=== PATIENT | male | born 1975 | race Caucasian/White ===

== ENCOUNTER 2021-02-07 11:47 | Emergency (ER) | payer OTHER, SELFPAY ==
--- NOTE | 2021-02-07 13:19 | PC.NURSE ---
pt was waiting for covid test, when staff called pt he was gone
[2021-02-07 13:20] VITALS: BP 0/0; PULSE 0; RESP 0; TEMP -17.7; TEMP 0
== END 2021-02-07 13:21 | disposition left against medical advice (07) ==
LOC: UTC 11:52
PROVIDERS: Emergency Provider Nurse Practitioner Family; PCP Family Medicine
DX: Z53.21 Procedure and treatment not carried out due to patient leaving prior to being seen by health care provider (principal)

== ENCOUNTER 2021-02-07 13:50 | Emergency (ER) | payer OTHER, SELFPAY ==
[2021-02-07 15:07] VITALS: BP 137/78; PULSE 80; RESP 18; TEMP 36.7; O2SAT 96; BMI 34.2
--- NOTE | 2021-02-07 15:15 | HMH.EDUTC ---
[facility] [place] Clinical Impression: Exposure to COVID-19 virus Disposition: Home, Self-Care Condition on Discharge: Good Instructions: DI for COVID-19 (Suspected or Confirmed ), Preventing the Spread of Coronavirus Discharge Instructions Additional Instructions: Drink plenty of fluids. Take tylenol for pain or fever. Return if you begin to have difficulty breathing. Follow up with your regular doctor. GO TO THE ER FOR ANY WORSENING SYMPTOMS Quarantine until you know the results of your covid-19 test. If it is positive, the health department should call you and give you further instructions about your length of Quarantine and other things. Notify your school or workplace of your results and follow their instructions regarding return to work/school. Referrals: Agnes Jernigan [Primary Care Provider] - Time of Disposition: 15:17 Medical Decision Making - Medical Records Medical records reviewed: No: I reviewed the patient's medical records. - Alex Inquiry Pt receiving controlled substance: No Vital Signs: 02/07/21 15:07 02/07/21 15:28 Temperature 98.0 F 98.0 F Temperature Source Oral Pulse Rate 80 Pulse Rate [Left Radial] 80 Respiratory Rate 18 18 Blood Pressure 137/78 Blood Pressure [Left Arm] 137/78 Blood Pressure Mean [Left Arm] 97 Blood Pressure Source [Left Arm] Automatic Cuff Blood Pressure Position [Left Arm] Sitting 02 Sat by Pulse Oximetry 96 Oxygen Delivery Method Room Air Orders (Tests/Meds): ORDERS Category Date Time Status Covid-19 Nasal PCR ([facility]) Routine Lab 02/07/21 14:58 Received [facility] [place] - General Stated complaint: covid test / exposure Time Seen by Provider: 02/07/21 15:15 Mode of Arrival: Ambulatory Source of Information: Patient Limitations: No Limitations Description of Symptoms (Recalled from Triage Doc. by RN): pt requesting covid test r/t exposure 1.5 weeks ago, pt states no symptoms HEENT Symptoms (Recalled from RN notes): No Resp Symptoms (Recalled from RN notes): No Skin Symptoms (Recalled from RN notes): No MS Symptoms (Recalled from RN notes): No Functional Status (Recalled from RN notes): n/a - History of Present Illness Provider Complaint: He was exposed to covid-19 in his house. He denies any symptoms so far. He needs a covid-19 test for his job. - Related Data Allergies Allergy/AdvReac Type Severity Reaction Status Date / Time amoxicillin [From Amoxil] Allergy Verified 02/07/21 13:09 - Worker's Comp Is this a Worker's Comp case?: No [facility] History - Hepatitis A Screen Drug use history?: No High risk sexual behaviors?: No History of sexually transmitted infection?: No Currently employed?: No Childcare worker?: No Do you have indoor plumbing?: Yes Do you have electricity?: Yes Attestation statement:: This patient has been screened for Hepatitis A risk factors. I have reviewed the patient's past medical history: Yes ROS Obtained: Yes All systems reviewed & no additional complaints - Constitutional Constitutional: Reports system reviewed and no additional complaints, except as docu - Eyes Eyes: Reports system reviewed and no additional complaints, except as docu - ENT Ears, Nose, Mouth, and Throat: Reports system reviewed and no additional complaints, except as docu - Cardiovascular Cardiovascular: Reports system reviewed and no additional complaints, except as docu - Respiratory Respiratory: Reports system reviewed and no additional complaints, except as docu - Gastrointestinal Gastrointestingal: Reports: system reviewed and no additional complaints, except as docu Physical Exam - General General appearance: alert, in no apparent distress - Head Head exam: atraumatic, normocephalic, normal inspection - Eye Eye exam: Present: normal appearance, PERRL, EOMI - ENT ENT exam: Present: normal exam, normal oropharynx, mucous membranes moist, TM's normal bilaterally, normal external ear ex
[2021-02-07 15:28] VITALS: BP 137/78; PULSE 80; RESP 18; TEMP 36.7; O2SAT 96
== END 2021-02-07 15:29 | disposition home or self-care (01) ==
PROVIDERS: Emergency Provider Nurse Practitioner Family; PCP Family Medicine
DX: U07.1 COVID-19 (principal)
CPT/HCPCS: 99202; G0463; U0003

== ENCOUNTER 2023-06-11 14:52 | Emergency (ER) | payer BC, SELFPAY ==
[2023-06-11 14:50] VITALS: BP 134/89; PULSE 75; RESP 18; TEMP 37.1; O2SAT 100; BMI 34.0
--- NOTE | 2023-06-11 14:52 | ECG_ITS ---
APPROVED REPORT Exam: Resting ECG HR:76 bpm ECG Measurements Heart Rate 76 AXES VT 141 P 65 QRSd 93 QRS 48 QT 336 T 33 QTc 366 Conclusion SINUS RHYTHM NORMAL ECG UNCONFIRMED REPORT Electronically signed by : Samy Connell MD 06/12/2023 10:06:29
--- NOTE | 2023-06-11 15:05 | XR_ITS ---
FINAL REPORT CLINICAL HISTORY: CHEST PAIN FINDINGS: SINGLE-VIEW CHEST The heart size is normal. The mediastinum is normal. The lungs are clear. There is no pneumothorax. IMPRESSION: No acute cardiopulmonary process. Reviewed, Interpreted and Dictated by Jose Blakely III, MD Transcribed by Pam Reynoso Authenticated and . [facility]
--- NOTE | 2023-06-11 15:12 | PC.NURSE ---
XR AT BEDSIDE
--- NOTE | 2023-06-11 15:14 | HMH.EDGENADL ---
Discharge Plan Disposition Patient Disposition: Left Against Medical Advice Clinical Impressions Clinical Impression: Left against medical advice Discharge ED Provider: Rashaun Elena Adult [facility] General Chief complaint: Chest Pain Stated complaint: chest pain Time Seen by Provider: 06/11/23 15:14 Mode of Arrival: Ambulatory Source of Information: Patient Limitations: No Limitations Description of Symptoms (Recalled from ER Triage Doc. by RN): PT REPORTS CHEST PAIN/SHORTNESS OF BREATH WHILE AMBULATING IN [employer]. HAS SEEN PCP ON WEDNESDAY FOR FLU-LIKE SYMPTOMS. REPORTS NON-PRODUCTIVE COUGH X 3 DAYS. REPORTS WORSE WITH EXERTION, BETTER AT REST. History of Present Illness HPI narrative: Patient describes brief episode of substernal chest pain that was acute in onset while ambulating in [employer], has resolved at this time. Has not had similar symptoms before. It was radiating to his left arm. Pain is described as dull. No previous therapies. Of note was seen by PCP for flulike symptoms earlier this week, prescribed azithromycin. He has been compliant with this medication. He had not had chest pain at that time. Denies any chronic medical issues. Denies any significant coronary family history. Pain is resolved at this time. Pain is nonpleuritic. No associated palpitations. No fevers or chills. Related Data Allergies Allergy/AdvReac Type Severity Reaction Status Date / Time amoxicillin [From Amoxil] Allergy Verified 02/07/21 13:09 [facility] Disclaimer: The information contained in this section may have been updated after the patient was seen, as this information can be updated by other users. Social History Smoking Status: Never smoker alcohol intake: current current occupational status: other Travel in the last 8 weeks: None ROS Obtained: Yes Systems reviewed as appropriate & no additional complaints except as documented As per HPI Physical Exam General General appearance: alert and in no apparent distress Head Head exam: atraumatic and normocephalic Eye Eye exam: Present normal appearance Neck Neck exam: Present normal inspection Chest Chest inspection: Present normal inspection and symmetric chest wall rise Respiratory Respiratory exam: Present normal lung sounds bilaterally; Absent respiratory distress Cardiovascular Cardiovascular exam: Present regular rate and normal rhythm; Absent systolic murmur or diastolic murmur Abdominal Exam Abdominal exam: Present soft Neurological Exam Neurological exam: Present alert and oriented X3 Psychiatric Psychiatric exam: Present normal affect and normal mood Skin Skin exam: Present warm and dry Medical Decision Making Medical Records Medical records reviewed: Yes I reviewed the patient's medical records. Alex Inquiry Pt receiving controlled substance: No Vital Signs: 06/11/23 14:50 06/11/23 16:00 06/11/23 16:30 Temperature 98.8 F Temperature Source Oral Pulse Rate 77 70 Pulse Rate [Apical] 75 Respiratory Rate 18 18 18 Blood Pressure 131/89 126/93 H Blood Pressure [Right Arm] 134/89 Blood Pressure Mean 105 98 Blood Pressure Mean [Right Arm] 104 Blood Pressure Source Blood Pressure Source [Right Arm] Automatic Cuff Blood Pressure Position Blood Pressure Position [Right Arm] Sitting 02 Sat by Pulse Oximetry 100 97 96 Oxygen Delivery Method Room Air 06/11/23 17:00 06/11/23 18:39 Temperature 98.2 F Temperature Source Oral Pulse Rate 70 70 Pulse Rate [Apical] Respiratory Rate 18 18 Blood Pressure 119/83 119/83 Blood Pressure [Right Arm] Blood Pressure Mean 95 Blood Pressure Mean [Right Arm] Blood Pressure Source Automatic Cuff Blood Pressure Source [Right Arm] Blood Pressure Position Supine Blood Pressure Position [Right Arm] 02 Sat by Pulse Oximetry 94 L Oxygen Delivery Method Room Air Lab Data Lab Results 06/11/23 14:50: WBC 4.0 L, RBC 4.97, Hgb 15.2, Hct 44.6, MCV 89.6, MCH 30.7, MCHC 34.2, RDW 13.4, Plt Count 205, MPV 8.2, Neut % (Auto) 63.9, Lymph % (Auto) 26.1, [place] % (Auto) 8.2, Eos % (Auto) 0.4, Baso % (Auto) 1.3, Neut # (Auto) 2.5, Lymph # (Auto) 1.0, [place] # (Auto) 0.3, Eos # (Auto) 0.0, Baso # (Auto) 0.1, Sodium 137, Potassium 4.3, Chloride 104, Carbon Dioxide 27, Anion Gap 10.3, BUN 19, Creatinine 1.20, Estimated Creat Clear 120, Estimated GFR 65, Est GFR ( Amer) 79, Glucose 106 H, Calcium 9.2, Total Bilirubin 0.7, AST 37, ALT 51, Alkaline Phosphatase 39, Troponin I 0.02, Total Protein 7.2, Albumin 4.1, Globulin 3.1, Albumin/Globulin Ratio 1.3 06/11/23 18:05: Troponin I 0.02 06/11/23 14:50 06/11/23 14:50 Orders (Tests/Meds): ED MEDICATIONS Discontinued Medications Generic Name Dose Route Start Last Admin Trade Name Freq PRN Reason Stop Dose Admin Acetaminophen 1,000 mg 06/11/23 15:44 06/11/23 15:59 Acetaminophen 500mg Tab PO 06/11/23 15:45 1,000 mg ONCE ONE Administration Lactated Ringer's 1,000 mls @ 999 mls/hr 06/11/23 15:44 06/11/23 16:00 Lactated Ringer's 1000 Ml Bag IV 06/11/23 16:44 999 mls/hr .Q1H1M ONE Administration Ibuprofen 600 mg 06/11/23 15:44 06/11/23 16:00 Ibuprofen 600 Mg Tablet PO 06/11/23 15:45 600 mg ONCE ONE Administration Sodium Chloride 10 ml 06/11/23 15:05 Sodium Chloride 0.9% 10ml Flush Syringe IV 07/11/23 15:04 NEEDED PRN Maintain IV Site ORDERS Category Date Time Status XR chest portable Stat Exams 06/11/23 15:05 Completed Complete Blood Count Auto Diff Stat Lab 06/11/23 14:50 Completed Comprehensive Metabolic Panel Stat Lab 06/11/23 14:50 Completed Troponin I Q3H Lab 06/11/23 18:05 Completed Troponin I Stat Lab 06/11/23 14:50 Completed ECG initial Besson Routine Y 06/11/23 14:52 Completed HEART Score History (anamnesis): Moderately suspicious ECG: Non-specific disturbance Age: 45-65 years Risk factors: 1-2 risk factors Troponin: </= normal limit HEART Score: 4 Medical Decision Narrative: Patient with history and exam per above presenting for evaluation of chest pain Diagnoses considered include ACS, pericarditis, PE, pneumothorax, pneumonia, GERD, costochondritis, referred pain ED workup and treatment included: ED MEDICATIONS Discontinued Medications Generic Name Dose Route Start Last Admin Trade Name Freq PRN Reason Stop Dose Admin Acetaminophen 1,000 mg 06/11/23 15:44 06/11/23 15:59 Acetaminophen 500mg Tab PO 06/11/23 15:45 1,000 mg ONCE ONE Administration Lactated Ringer's 1,000 mls @ 999 mls/hr 06/11/23 15:44 06/11/23 16:00 Lactated Ringer's 1000 Ml Bag IV 06/11/23 16:44 999 mls/hr .Q1H1M ONE Administration Ibuprofen 600 mg 06/11/23 15:44 06/11/23 16:00 Ibuprofen 600 Mg Tablet PO 06/11/23 15:45 600 mg ONCE ONE Administration Sodium Chloride 10 ml 06/11/23 15:05 Sodium Chloride 0.9% 10ml Flush Syringe IV 07/11/23 15:04 NEEDED PRN Maintain IV Site ORDERS Category Date Time Status XR chest portable Stat Exams 06/11/23 15:05 Completed Complete Blood Count Auto Diff Stat Lab 06/11/23 14:50 Completed Comprehensive Metabolic Panel Stat Lab 06/11/23 14:50 Completed Troponin I Q3H Lab 06/11/23 18:05 Completed Troponin I Stat Lab 06/11/23 14:50 Completed ECG initial Bess[place] Routine Y 06/11/23 14:52 Completed Labs were independently interpreted by me, significant for leukopenia, creatinine 1.20, initial troponin detectable at 0.02 EKG was independently visualized and interpreted by me significant for normal sinus rhythm, normal axis, anterior T wave depressions Imaging was independently visualized and interpreted by me, significant for no acute findings Patient and family member at bedside are requesting to be discharged at this time AGAINST MEDICAL ADVICE. They are frustrated with their length of stay which was explained is due to pending second troponin, as initial troponin was detectable, patient has nonspecific EKG changes, and had recent onset of chest pain necessitating a delta troponin. They explained to me that they are not concerned about any coronary cause of his chest pain and simply wanted to be checked out for any infectious process. My clinical impression was discussed including risks of being discharged AGAINST MEDICAL ADVICE including disability and . They expressed an understanding of these risks and still request to be discharged. They are encouraged to follow-up with cardiology and return should they change their mind or should his symptoms worsen. Patient was instructed to continue azithromycin prescribed by physician earlier this week. Again, return precautions were given. Critical Care Critical Care Time Critical Care Time: No
[2023-06-11 15:22] LABS: Basophils # 0.1 K/mm3 (0-0.2); Basophils % 1.3 % (0.1-2.0); Eosinophils % 0.4 % (0.1-12.0); Hematocrit 44.6 % (42.0-52.0); Hemoglobin 15.2 g/dL (14.1-18.0); Lymphocytes % 26.1 % (10-50); Mean Corpuscular HGB Conc 34.2 g/dL (31.8-35.4); Mean Corpuscular Hemoglobin 30.7 pg (27.0-31.2); Mean Corpuscular Volume 89.6 fl (80-94); Mean Platelet Volume 8.2 fl (7.4-10.4); Monocytes # 0.3 K/mm3 (0.1-1.0); Monocytes % 8.2 % (1.7-9.3); Neutrophils # 2.5 K/mm3 (1.8-7.8); Neutrophils % 63.9 % (37.0-80.0); Platelet Count 205 K/mm3 (142-424); Red Blood Count 4.97 M/mm3 (4.60-6.20); Red Cell Distribution Width 13.4 % (11.5-17.5)
[2023-06-11 15:24] LABS: Chloride 104 mmol/L (98-107)
[2023-06-11 15:25] LABS: Potassium 4.3 mmoL/L (3.5-5.1); Sodium 137 mmol/L (136-145)
[2023-06-11 15:27] LABS: Alanine Aminotransferase 51 U/L (12-78); Aspartate Amino Transferase 37 U/L (17-59); Blood Urea Nitrogen 19 mg/dl (9-20); Creatinine Clearance Estimated 120 mL/min (50-200); Estimated Glomerular Filt Rate 65 ml/min (>60); GFR (African American) 79 ML/MIN (>60)
[2023-06-11 15:28] LABS: Albumin Level 4.1 g/dl (3.5-5.0); Albumin/Globulin Ratio 1.3 (1.1-1.8); Alkaline Phosphatase 39 U/L (38-126); Anion Gap 10.3 mEq/L (5-15); Bilirubin,Total 0.7 mg/dl (0.2-1.3); Calcium 9.2 mg/dl (8.4-10.2); Carbon Dioxide 27 mmol/L (22.0-30.0); Globulin 3.1 g/dL (1.3-3.2); Glucose 106 mg/dl (74-100); Total Protein,Serum 7.2 g/dl (6.3-8.2)
--- NOTE | 2023-06-11 15:28 | PC.NURSE ---
Addendum entered by Traci Steven RN 06/11/23 18:14: 1528 DR MONTERO AT BEDSIDE Original Note: DR MONTERO
[2023-06-11 15:40] LABS: Troponin I 0.02 ng/ml (0.00-0.034)
[2023-06-11] MEDS: ACETAMINOPHEN 500MG TAB 1000 MG PO (15:59)
[2023-06-11 16:00] VITALS: BP 131/89; PULSE 77; RESP 18; O2SAT 97
[2023-06-11] MEDS: LACTATED RINGERS 1000ML 1,000 ML 999 ML IV (16:00)
[2023-06-11] MEDS: IBUPROFEN 600 MG TABLET PO (16:00)
--- NOTE | 2023-06-11 16:00 | PC.NURSE ---
PT MEDICATED PER EMAR, NO NEEDS AT THIS TIME. CALL LIGHT WITHIN REACH. AT BEDSIDE
[2023-06-11 16:30] VITALS: BP 126/93; PULSE 70; RESP 18; O2SAT 96
[2023-06-11 17:00] VITALS: BP 119/83; PULSE 70; RESP 18; O2SAT 94
--- NOTE | 2023-06-11 17:00 | PC.NURSE ---
PT PROVIDED WARM BLANKET
--- NOTE | 2023-06-11 18:08 | PC.NURSE ---
THIS NURSE AT BEDSIDE TO DRAW REPEAT TROP. STATES CAN WE JUST GO? WE HAVE BEEN HERE FOR 3 HOURS! EXPLAINED TO THAT BLOOD WORK FOR HEART ENZYMES ARE REPEATED AT 3 HOURS AFTER FIRST BLOOD COLLECTED. DEMANDS PT'S IV BE REMOVED AND [facility] CALL PT WITH RESULTS. OFFERED TO REMOVE IV FOR PT. INFORMED DR MONTERO OF 'S CONCERNS. DR. MONTERO STATES HE IS FINISHING OTHER EMERGENT MATTERS AND WILL SEE PT SONIDO. PT AND UPDATED.
[2023-06-11 18:33] LABS: Troponin I 0.02 ng/ml (0.00-0.034)
--- NOTE | 2023-06-11 18:33 | PC.NURSE ---
PT REQUESTING TO LEAVE THE HOSPITAL AMA , DR MONTERO WENT IN AND SPOKE WITH PT EXPLAINING WHY HE NEEDS TO STAY PT UNDERSTANDS AND AGREES TO RETURN TO ER IF PAIN RETURNS OR ANY OTHER PROBLEMS. IV REMOVED PT AMBULATED OUT WITH AMA PAPER SIGNED
[2023-06-11 18:39] VITALS: BP 119/83; PULSE 70; RESP 18; TEMP 36.8; O2SAT 94
== END 2023-06-11 18:56 | disposition left against medical advice (07) ==
PROVIDERS: Emergency Provider Emergency Medicine; PCP Family Medicine
DX: R07.9 Chest pain, unspecified (principal); R06.02 Shortness of breath; M79.602 Pain in left arm; R05.9 Cough, unspecified
CPT/HCPCS: 71045; 80053; 84484; 85025; 93005; 96360; 99285

== ENCOUNTER 2024-01-22 10:29 | Outpatient (CLI) | payer BC, SELFPAY ==
--- NOTE | 2024-01-22 | XR_ITS ---
PROCEDURE INFORMATION: Exam: XR Left Shoulder Exam date and time: 01/22/2024 10:58 AM Age: 48 years old Clinical indication: Pain; Shoulder; Left; Additional info: Pain, no known trauma TECHNIQUE: Imaging protocol: Radiologic exam of the left shoulder. Views: 2 or more views. COMPARISON: CR XR CHEST PORTABLE 06/11/2023 3:12 PM FINDINGS: Bones/joints: There is no evidence of acute fracture.There is no evidence of malalignment or dislocation. Soft tissues: Normal. IMPRESSION: There is no evidence of acute fracture.There is no evidence of malalignment or dislocation.
== END 2024-01-22 23:59 | disposition home or self-care (01) ==
LOC: RAD 10:31
PROVIDERS: PCP Family Medicine; Visit Provider Family Medicine
DX: M25.512 Pain in left shoulder (principal)
CPT/HCPCS: 73030

== ENCOUNTER 2024-11-26 13:50 | Emergency (ER) | payer BC, SELFPAY ==
[2024-11-26] VITALS (10 sets, daily range): BP systolic 150–185; BP diastolic 100–117; PULSE 68–87; RESP 14–18; TEMP 36.8–37.1; O2SAT 92–100; BMI 34.2
--- OUTSIDE RECORDS SUMMARY | 2024-11-26 14:03 | XMS_ITS | Clinical Summary ---
Author Organization [facility] Address [address] [place] [phone] Phone Care Team Providers Care Branch Operations Manager Name Role Phone Unavailable Primary Care Provider Unavailabl e Allergies Active Allergy Reactions Criticality Noted Date Comments Bee Pollen Anaphylaxis High 06/24/2014 Medications No known medications Social History Tobacco Use Types Packs/Day Years Used Date Smoking Tobacco: Never Smokeless Tobacco: Never Alcohol Use Standard Drinks/Week Comments No 0 (1 standard drink = 0.6 oz pur e alcohol) Sexually Active Control Partners Comments Not Currently Sex and Gender Information Value Date Recorded Sex Assigned at Not on file Legal Sex Male 3:15 AM EDT Gender Identity Not on file Sexual Orientation Not on file Obstetrics History Last Filed Vital Signs Vital Sign Reading Time Taken Comments Blood Pressure 130/90 06/24/2014 10:49 AM EST Pulse 90 06/24/2014 10:49 AM EST Temperature 36.6 C (97.9 F) 06/24/2014 10:49 AM EST Respiratory Rate 16 06/24/2014 10:49 AM EST Oxygen Saturation 99% 06/24/2014 10:49 AM EST Inhaled Oxygen Concentration - - Weight 98.9 kg (218 lb) 06/24/2014 10:49 AM EST Height 180.3 cm (5' 11 ) 06/24/2014 10:49 AM EST Body Mass Index 30.4 06/24/2014 10:49 AM EST Plan of Treatment Health Maintenance Due Date Last Done Comments Annual Wellness Exam 09/17/1979 DTaP/TDaP/Td (1 - Tdap) 09/17/1995 Hepatitis B Vaccine (1 of 3 - 19+ 3-dose series) 09/17/1995 Cologuard 2021 Colon Cancer Screening 2021 Colonoscopy 2021 FIT 2021 Sigmoidoscopy 2021 Virtual Colonography 2021 COVID-19 Vaccine (1 - 2023-2 5 season) 2024 Influenza Vaccine (Season Ended) 2025 Meningococcal B Vaccine Aged Out No l onger eligible based on patient's age to complete this topic Pneumococcal Vaccine 0-49 Aged Out No longer eligible based on patient's age to complete this topic Insurance 1996 [place] [id number] [employer] PPO [employer] PPO
--- NOTE | 2024-11-26 14:07 | PC.NURSE ---
pt filling out the animal bite form. Gauze applied to patient's ear and coban wrapped. Bleeding controlled. Pt states dog was UTD on its rabies vaccination. Pt will need t-dap updated.
[2024-11-26] MEDS: AMOXICILLIN/CLAVULANATE POTASSIUM 875/125MG TABLET 1 EACH PO (15:30)
[2024-11-26] MEDS: TET/DIPHTH/PERT-ADULT 0.5ML SYRINGE 0.5 ML IM (15:30)
--- NOTE | 2024-11-26 15:34 | ED_ITS ---
Discharge Plan Disposition Patient Disposition: Home, Self-Care Condition: Good Prescriptions Prescriptions: New amoxicillin-pot clavulanate 875-125 mg tablet 1 tab PO BID Qty: 20 0RF levofloxacin 750 mg tablet 750 mg PO DAILY 7 Days Qty: 7 0RF Referrals Follow up/Referrals: Agnes Jernigan [Primary Care Provider, Medical] - See instructions Yadira Terrazas APRN [Nurse Practitioner, Ear, Nose, Throat] - See instructions Activity Restrictions/Add. Instructions Additional Instructions/Restrictions: You were evaluated in the emergency department today. You have a complex laceration to your ear that was repaired with both absorbable and nonabsorbable sutures. The nonabsorbable sutures will need to be removed in 7 to 10 days. There are 19 of them. 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 I recommend leaving the pressure dressing that on your head on for 24 hours to help prevent an auricular hematoma. Make sure the wound stays clean and dry. You may apply antibiotic, twice daily to help prevent infection and promote healing. Do not submerge your ear underwater, such as in swimming pool or in the bathtub until completely healed and sutures have been removed. I recommend follow-up with ENT for wound recheck. Please call their office to schedule an appointment. Return to the emergency department right away for new or worsening symptoms. Take Tylenol and ibuprofen every 4-6 hours as needed for pain. Clinical Impressions Clinical Impression: Dog bite of right ear, Complex laceration of right ear Stand Alone Forms Stand Alone Forms: Work/School Release Instructions Patient Instructions: Animal Bites, DI for Dog Bite Print Language Print Language: Occitan Discharge ED Provider: Janesas Narvaez General Adult HPI General Chief complaint: Animal Bite Stated complaint: AO 11/26/24 140. Dog bite R ear Time Seen by Provider: 11/26/24 15:02 Mode of Arrival: Ambulatory Source of Information: Patient Description of Symptoms (Recalled from ER Triage Doc. 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 pt bent over next to the animals food bowl and the dog bit him. pt reports the dog is UTD on vaccines and has no bite hx. pt is due and will to take a TDAP. the pts cartlige is severely ripped. History of Present Illness HPI narrative: This patient is a 49-year-old male who denies any past medical history presenting to the emergency department for evaluation with concern for dog bite to the right ear that happened just prior to arrival. 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 He notes the dog is up-to-date on vaccinations. He is unsure when his last tetanus shot was. No other concerns or complaints noted. No other injuries. Of note, his medical record lists amoxicillin as an allergy, but he states that he is not allergic to amoxicillin and is not allergic to anything that he knows of. Related Data Previous Rx's ?Medication ?Instructions ?Recorded amoxicillin 875 mg-potassium 1 tab PO BID #20 tabs clavulanate 125 mg tablet levofloxacin 750 mg tablet 750 mg PO DAILY 7 days #7 t abs 11/26/24 Allergies Allergy/AdvReac Type Severity Reaction Status Date / Time amoxicillin (From Amoxil) Allergy Verified 02/07/21 13:09 [facility] Disclaimer: The information contained in this section may have been updated after the patient was seen, as this information can be updated by other users. Social History Smoking Status: Never smoker alcohol intake: current current occupational status: other Travel in the last 8 weeks?: None Have you lived/traveled outside [place] in past 30 days?: No Contact w/someone who lives/traveled outside [place] past 30 days?: No Exposure to someone with infectious disease in past 14 days?: No Do you have a fever (greater than 100.4 F or 38 C)?: No Have you tested positive for COVID-19?: No Exposed to someone with COVID-19 in past 14 days?: No Do you have a sore throat?: No Do you have a cough?: No Do you have any weakness?: No Do you have any diarrhea?: No Are you experiencing any unusual bleeding?: No Do you have any muscle aches/pain?: No Do you have any abdominal pain?: No Are you experiencing loss of taste or smell?: No ROS Obtained: Yes All systems reviewed & no additional complaints except as documented Physical Exam General General appearance: alert and in no apparent distress Head Head exam: atraumatic and normocephalic Eye Eye exam: Present normal appearance, PERRL and EOMI ENT ENT exam: Present normal oropharynx and mucous membranes moist Expanded ENT Exam Ear images: 2 1. Full-thickness laceration with exposed cartilage Neck Neck exam: Present normal inspection, full ROM and trachea midline; Absent tenderness Chest Chest inspection: Present normal inspection and symmetric chest wall rise; Absent tenderness Respiratory Respiratory exam: Present normal lung sounds bilaterally; Absent respiratory distress, wheezes, stridor or accessory muscle use Cardiovascular Cardiovascular exam: Present regular rate and normal rhythm Abdominal Exam Abdominal exam: Present soft; Absent distention, tenderness or guarding exam: Absent deferred Extremities Exam Extremities exam: Present normal inspection, full ROM and normal capillary refill; Absent tenderness or edema Back Exam Back exam: Present normal inspection and full ROM; Absent tenderness Neurological Exam Neurological exam: Present alert, oriented X3, CN II-XII intact and normal gait; Absent motor sensory deficit Psychiatric Psychiatric exam: Present normal affect and normal mood Skin Skin exam: Present warm and dry Medical Decision Making Medical Records Medical records reviewed: Yes I reviewed the patient's medical records. Screening: Per USPSTF and CDC recommendations, given the prevalence of disease in our region, it is our hospital?s policy to screen for HIV and viral Hepatitis for all patients aged 18 and over and those with ongoing risk factors. Alex Inquiry Pt receiving controlled substance: No Vital Signs: 11/26/24 14:03 11/26/24 15:00 11/26/24 15:30 Temperature 98.7 F Temperature Source Oral Pulse Rate 75 75 Pulse Rate [Left] 87 Respiratory Rate 14 Blood Pressure Blood Pressure [Right Arm] 150/100 H Blood Pressure Mean Blood Pressure Mean [Right Arm] 116 Blood Pressure Source Blood Pressure Source [Right Arm] Automatic Cuff Blood Pressure Position Blood Pressure Position [Right Arm] Sitting 02 Sat by Pulse Oximetry 96 96 97 Oxygen Delivery Method Room Air 11/26/24 16:00 11/26/24 16:34 11/26/24 17:00 Temperature Temperature Source Pulse Rate 84 83 75 Pulse Rate [Left] Respiratory Rate Blood Pressure 170/108 H 165/109 H Blood Pressure [Right Arm] Blood Pressure Mean Blood Pressure Mean [Right Arm] Blood Pressure Source Blood Pressure Source [Right Arm] Blood Pressure Position Blood Pressure Position [Right Arm] 02 Sat by Pulse Oximetry 98 100 97 Oxygen Delivery Method 11/26/24 17:30 11/26/24 18:00 11/26/24 18:30 Temperature Temperature Source Pulse Rate 73 79 68 Pulse Rate [Left] Respiratory Rate 18 Blood Pressure 166/114 H 154/110 H 158/117 H Blood Pressure [Right Arm] Blood Pressure Mean 131 Blood Pressure Mean [Right Arm] Blood Pressure Source Blood Pressure Source [Right Arm] Blood Pressure Position Blood Pressure Position [Right Arm] 02 Sat by Pulse Oximetry 97 92 L 97 Oxygen Delivery Method 11/26/24 19:12 Temperature 98.3 F Temperature Source Oral Pulse Rate 68 Pulse Rate [Left] Respiratory Rate 18 Blood Pressure 185/115 H Blood Pressure [Right Arm] Blood Pressure Mean Blood Pressure Mean [Right Arm] Blood Pressure Source Automatic Cuff Blood Pressure Source [Right Arm] Blood Pressure Position Sitting Blood Pressure Position [Right Arm] 02 Sat by Pulse Oximetry Oxygen Delivery Method Room Air Lab Data Lab results reviewed: Yes I reviewed the patient's lab results. Orders (Tests/Meds): ED MEDICATIONS Discontinued Medications Generic Name Dose Route Start Last Admin Trade Name Freq PRN Reason Stop Dose Admin Amoxicillin/Clavulanate Potassium 1 each 11/26/24 15:06 11/26/24 15:30 Amoxicillin/Clavulanate Potassium 875/125mg Tablet PO 11/26/24 15:07 1 each ONCE ONE Administration Levofloxacin 750 mg 11/26/24 16:24 11/26/24 16:36 Levofloxacin 750 Mg Tablet PO 11/26/24 16:25 750 mg ONCE ONE Administration Lidocaine HCl 20 ml 11/26/24 15:27 11/26/24 15:43 Lidocaine 1% 20ml Mdv IJ 11/26/24 15:28 20 ml ONCE ONE Administration Lidocaine HCl 20 ml 11/26/24 17:55 11/26/24 17:57 Lidocaine 1% 20ml Mdv IJ 11/26/24 17:56 20 ml ONCE ONE Administration Ondansetron HCl 4 mg 11/26/24 16:59 11/26/24 17:02 Ondansetron 4mg Odt SL 11/26/24 17:00 4 mg ONCE ONE Administration Oxycodone HCl 5 mg 11/26/24 16:59 11/26/24 17:01 Oxycodone 5mg Immediate Release Tablet PO 12/26/24 16:58 5 mg Q6HP PRN Administration Severe Pain (7-10) Tetanus/Reduced Diphtheria/Acell Pertussis 0.5 ml 11/26/24 15:06 11/26/24 15:30 Tet/Diphth/Pert-Adult 0.5ml Syringe IM 11/26/24 15:07 0.5 ml .ONCE ONE Administration Medical Decision Narrative: In summary, this patient is a 49-year-old male presenting to the Emergency Department for evaluation of dog bite to the right ear. Differential diagnoses considered include but are not limited to ear avulsion, laceration, cartilage injury. Ruling out the most morbid conditions drove assessment. It should be noted patient's history includes hypertension which may not be at goal therapy. This complicates all aspects of care by increasing patient's risk for morbidity. On exam, the patient is well-appearing. He has a full-thickness laceration through the cartilage of his right ear that is very jagged and irregular. The dog is up-to-date on vaccinations including rabies, but he is unsure when his last tetanus shot was. His medical record lists amoxicillin as an allergy, but he states he is not allergic. Patient was given Tdap booster and oral Augmentin. Advised him that I would recommend transfer to higher level of care with either plastic surgery or ENT given the cartilage exposure, the nature of the injury being a dog bite, and the irregularity of the laceration. I advised that I fear that if I repaired it here, it would not heal well and would not be cosmetically pleasing. I advised him that it is very high risk for infection. Patient states that he is not interested in transfer, he wants us to repair the wound here, understanding that I cannot guarantee he is scheduled for repair as a surgeon would. I did call and discussed the case with Dr. Palacios with face surgery at who recommended thorough washout, prescriptions for Augmentin and Levaquin, reapproximation with 2 or 3 sutures through the cartilage, and then repair of the skin with a 5-0 or 6-0 suture. This was performed. Patient was given Levaquin in addition to the Augmentin that I had already given. He is wounds were copiously irrigated with Betadine and then saline, and he underwent repair after an auricular block. He tolerated this well with no immediate complications. Bacitracin was then applied to the wound as well as a nonadherent dressing. A pressure dressing was placed and he was given instructions to leave it on for 24 hours to prevent an auricular hematoma. At this time, he was deemed to be appropriate for discharge home with instructions for close follow-up with ENT or a plastic surgeon for recheck of his wounds and for suture removal. He was given prescriptions for Augmentin and Levaquin, instructions for wound care, and very strict return precautions. He was discharged after all questions were answered. Procedures Laceration Laceration 1: Site: other (ear) Side (If applicable): right Size (cm): 5 Description: flap, irregular and other (involves cartilage) Depth: [id number] (involving cartilage) Local Anesthetic: lidocaine 1% Amount of anesthesia used (mL): 20 Pre-repair: wound explored and irrigated extensively (cleaned with betadine) Skin layer closed with: nylon Size (cm): 6-0 Number of sutures: 19 Technique: simple, interrupted Subcutaneous layer closed with: chromic gut Size: 4-0 Number of sutures: 2 Technique: simple, interrupted Critical Care Critical Care Time Critical Care Time: No
[2024-11-26] MEDS: LIDOCAINE 1% 20ML MDV 20 ML IJ ×2 (15:43→17:57)
--- NOTE | 2024-11-26 15:44 | PC.NURSE ---
[facility]Alled [facility] for consult on pt. States [facility] will call back with provider when avail
--- NOTE | 2024-11-26 16:00 | PC.NURSE ---
is on the phone with .
--- NOTE | 2024-11-26 16:13 | PC.NURSE ---
is on the phone with now.
[2024-11-26] MEDS: levoFLOXacin 750 MG TABLET PO (16:36)
[2024-11-26] MEDS: OXYCODONE 5MG IMMEDIATE RELEASE TABLET 5 MG PO (17:01)
[2024-11-26] MEDS: ONDANSETRON 4MG ODT 4 MG SL (17:02)
--- NOTE | 2024-11-26 18:46 | PC.NURSE ---
I placed a pressure dressing with bacitracin, xeroform, 4x4 and koban on the pts wound post sutures.
== END 2024-11-26 19:12 | disposition home or self-care (01) ==
PROVIDERS: Emergency Provider Emergency Medicine; PCP Family Medicine
DX: S01.351A Open bite of right ear, initial encounter (principal); W54.0XXA Bitten by dog, initial encounter; Z23 Encounter for immunization
CPT/HCPCS: 13152; 90471; 90715; 99284; J2003; Q0162